=== PATIENT | male | born 1985 | race African-American/Black ===

== ENCOUNTER 2017-01-20 09:41 | Emergency (ER) | payer SELFPAY ==
[~2017-01-20] VITALS: Ht 177.8 cm; Wt 61.4 kg
[2017-01-20 09:45] VITALS: TEMP 97.9
[2017-01-20 10:47] LABS: BASO # 0.1 (0.0-0.2); BASO % 0.8 % (0.0-2.0); EOS # 0.1 (0.0-0.7); EOS % 1.5 % (0-4.0); HEMATOCRIT 45.9 % (42.0-52.0); HEMOGLOBIN 14.8 g/dl (13.5-18.0); LYMPH # 1.5 (1.2-3.4); LYMPH % 24.3 % (20.0-51.0); MEAN CELL VOLUME 87 fl (80.0-100.0); MEAN CORPUSCULAR HEMOGLOBIN 28 pg (27.0-31.0); MEAN CORPUSCULAR HGB CONC 32 g/dl (33.0-37.0); MEAN PLATELET VOLUME 10.8 fl (7.4-10.4); MONO # 0.6 (0.1-0.6); MONO % 9.2 % (1.7-9.3); PLATELET COUNT 175 K/mm3 (130-400); RED BLOOD COUNT 5.27 M/mm3 (4.20-5.60); REDCELL DISTRIBUTION WIDTH-CV 13.5 % (11.5-14.5); WHITE BLOOD COUNT 6.2 K/mm3 (4.8-10.8)
[2017-01-20 11:18] LABS: ADJUSTED CALCIUM 8.9 mg/dL (8.4-10.2); ALANINE AMINOTRANSFERASE 23 U/L (21-72); ALBUMIN 4.4 gm/dL (3.5-5.0); ALKALINE PHOSPHATASE 68 U/L (50-136); ANION GAP 10 mmol/L (7-16); BILIRUBIN,TOTAL 1.3 mg/dL (0.0-1.0); BLOOD UREA NITROGEN 10 mg/dL (9-20); CALCIUM 9.2 mg/dL (8.4-10.2); CARBON DIOXIDE 24 mmol/L (22-30); CHLORIDE 102 mmol/L (98-107); CREATININE, serum 0.83 mg/dL (0.66-1.25); GLUCOSE 86 mg/dL (74-106); POTASSIUM 4.2 mmol/L (3.4-5.0); SODIUM 135 mmol/L (137-145); TOTAL PROTEIN 7.8 gm/dL (6.4-8.2)
[2017-01-20 11:20] LABS: C-REACTIVE PROTEIN < 0.5 mg/dL (0.0-0.9)
[2017-01-20 12:13] LABS: PH 5 (5-8); SQUAMOUS EPITHELIAL 0-2 /hpf; URINE APPEARANCE Clear; URINE BACTERIA None Seen /hpf; URINE BILIRUBIN Negative (NEGATIVE); URINE BLOOD Negative (NEGATIVE); URINE COLOR Yellow; URINE GLUCOSE Negative (NEGATIVE); URINE KETONE Negative (NEGATIVE); URINE RBC 0-2 /hpf
[2017-01-20] MEDS ORDERED: CEFTIN 250250 MG/TAB PO (12:40)
[2017-01-20 12:48] VITALS: BP 122/77; PULSE 54
== END 2017-01-20 12:50 | disposition home or self-care (01) ==
LOC: COL.ER 09:41
PROVIDERS: Nurse Practitioner
DX: N39.0 Urinary tract infection, site not specified (principal); R10.817 Generalized abdominal tenderness
CPT/HCPCS: J2405; J3010; J7030

== ENCOUNTER 2017-05-18 09:00 | Emergency (ER) | payer SELFPAY ==
[~2017-05-18] VITALS: Ht 177.8 cm; Wt 61.4 kg
[~2017-05-18 09:00] MED LIST: CEFTIN 250250 MG/TAB PO
[2017-05-18 09:02] VITALS: TEMP 97.3
[2017-05-18 10:20] LABS: COLLECTION METHOD CLEAN CATCH
[2017-05-18 10:38] LABS: PH 6 (5-8); SQUAMOUS EPITHELIAL None Seen /hpf; URINE APPEARANCE Clear; URINE BACTERIA None Seen /hpf; URINE BILIRUBIN Negative (NEGATIVE); URINE BLOOD Negative (NEGATIVE); URINE COLOR Yellow; URINE GLUCOSE Negative (NEGATIVE); URINE KETONE Negative (NEGATIVE); URINE LEUKOCYTE ESTERASE Negative (NEGATIVE); URINE PROTEIN(semi-quant) Negative (NEGATIVE)
[2017-05-18 10:52] LABS: URINE WBC None Seen /hpf
[2017-05-18 11:41] VITALS: BP 121/60; PULSE 76
[2017-05-18 12:04] LABS: CHLAMYDIA/TRACH by PCR Male NOT DETECTED; Neisseria Gon by PCR Male NOT DETECTED
== END 2017-05-18 11:41 | disposition home or self-care (01) ==
LOC: COL.ER 09:00
PROVIDERS: Nurse Practitioner
DX: Z20.2 Contact with and (suspected) exposure to infections with a predominantly sexual mode of transmission (principal); F17.210 Nicotine dependence, cigarettes, uncomplicated
CPT/HCPCS: J0696

== ENCOUNTER 2017-06-01 19:35 | Emergency (ER) | payer SELFPAY ==
[~2017-06-01] VITALS: Ht 177.8 cm; Wt 61.4 kg
[2017-06-01 19:39] VITALS: BP 108/61; TEMP 97.9
[2017-06-01] MEDS ORDERED: AMOXICILLIN 8751 TAB PO (20:31)
[2017-06-01 20:49] VITALS: PULSE 65
== END 2017-06-01 20:50 | disposition home or self-care (01) ==
LOC: COL.ER 19:35
DX: T74.11XA Adult physical abuse, confirmed, initial encounter (principal); S02.5XXA Fracture of tooth (traumatic), initial encounter for closed fracture; S06.0X0A Concussion without loss of consciousness, initial encounter; S01.451A Open bite of right cheek and temporomandibular area, initial encounter; Y07.430 Stepfather, perpetrator of maltreatment and neglect; Y04.8XXA Assault by other bodily force, initial encounter; Y92.009 Unspecified place in unspecified non-institutional (private) residence as the place of occurrence of the external cause